=== PATIENT | female | born 1960 | race Caucasian/White ===

== ENCOUNTER → 2017-05-07 | Outpatient (CLI) | payer BC | LOC: FIMAGING 07:55 | PROVIDERS: ATTEND Thoracic Surgery (Cardiothoracic Vascular Surgery) | DX: I71.2 Thoracic aortic aneurysm, without rupture (principal); R59.9 Enlarged lymph nodes, unspecified; Q23.1 Congenital insufficiency of aortic valve; R91.1 Solitary pulmonary nodule ==

== ENCOUNTER → 2017-05-11 | Outpatient (CLI) | payer BC | LOC: FIMAGING 15:31 | PROVIDERS: ATTEND Family Medicine | DX: Z12.31 Encounter for screening mammogram for malignant neoplasm of breast (principal); Z80.3 Family history of malignant neoplasm of breast | CPT/HCPCS: G0202 ==

== ENCOUNTER → 2017-07-26 | Outpatient (CLI) | payer BC ==
[~2017-07-26] MED LIST: IOPAMIDOL (ISOVUE 370) 100 ML BTL IV ONE
== END ==
LOC: FIMAGING 15:36
PROVIDERS: ATTEND Thoracic Surgery (Cardiothoracic Vascular Surgery)
DX: I71.2 Thoracic aortic aneurysm, without rupture (principal); Q27.8 Other specified congenital malformations of peripheral vascular system
CPT/HCPCS: Q9967

== ENCOUNTER 2017-11-22 07:33 | Day surgery (SDC) | payer BC ==
[2017-11-22] MEDS ORDERED: DIAZEPAM 5 MG TAB PO ONE (07:41)
[2017-11-22] MEDS ORDERED: NS 1,000 ML IV ONE (07:41)
[2017-11-22] MEDS ORDERED: FAMOTIDINE 20 MG TAB PO ONE (07:41)
[2017-11-22] MEDS ORDERED: diphenhydrAMINE 25 MG CAP PO ONE ×2 (07:41→07:50)
[2017-11-22] MEDS ORDERED: ASPIRIN EC 325 MG TAB PO ONE ×2 (07:41→07:50)
[2017-11-22] MEDS ORDERED: FAMOTIDINE 20 MG TAB ONE (07:50)
[2017-11-22] MEDS ORDERED: DIAZEPAM 5 MG TAB ONE (07:51)
[2017-11-22 08:09] LABS: PLATELET COUNT 188 10^3/uL (150-400)
--- NOTE | 2017-11-22 08:15 | CPEKG ---
Heart Rate: 66 RR Interval: 909 P-R Interval: 184 QRSD Interval: 92 QT Interval: 408 QTC Interval: 428 P [place]: 60 QRS [place]: 19 T Wave [place]: 31 EKG Severity - NORMAL ECG - EKG Impression: SINUS RHYTHM Electronically Signed By: Anshu Haley 22-Nov-2017 10:16:34
[2017-11-22 08:17] LABS: INR 0.98 (0.83-1.16); PROTIME(PATIENT) 13.2 SEC (12.0-15.0)
[2017-11-22] MEDS ORDERED: LIDOCAINE 1% 300 MG/30 ML SDV ONE (08:26)
[2017-11-22] MEDS ORDERED: MIDAZOLAM 2 MG/2 ML VIAL ONE ×3 (08:26→10:17)
[2017-11-22] MEDS ORDERED: fentaNYL 100 MCG/2 ML INJ ONE ×2 (08:26→10:04)
[2017-11-22] MEDS ORDERED: VERAPAMIL 5 MG/2 ML VIAL ONE (08:27)
[2017-11-22] MEDS ORDERED: IOPAMIDOL (ISOVUE-370) 150 ML BTL IV ONE (08:27)
[2017-11-22] MEDS ORDERED: HEPARIN 10,000 UNIT/10 ML MDV (1,000 UNIT/ML) ONE (08:27)
--- NOTE | 2017-11-22 09:42 | PDHPUP ---
History & Physical Update H&P update statement: This history and physical update is based on an assessment of the patient which was completed after admission or registration (within 24 hours), but prior to the surgery/procedure. H&P update: H&P reviewed & patient examined, no change in patient's condition since H&P completed
--- NOTE | 2017-11-22 09:42 | PDPROPOC ---
Sedation Plan of Care Sedation Plan of Care: vital signs stable, mental status noted, patient educated of risks, benefits, alternatives, patient can tolerate sedation ASA Classification: ASA 3 Planned drugs: fentanyl, midazolam Mallampati Score: Class 3 Mallampati Reference Image: Patient passed 3-3-2 rule?: Yes
--- NOTE | 2017-11-22 10:01 | PDDXCAT ---
Diagnostic Cath Note - . Date: 11/22/17 Headline Writer: Kitty Indication: other (Diagnostic heart cath. CCS Class I angina. ) - Procedure Access: left wrist Procedure: left heart catheterization, right heart catheterization - Materials Left Heart Cath size: 5F Left Heart Cath materials: standard multipack (JL4, JR4, pigtail) Right Heart Cath size: 5F Right Heart Cath materials: PWP catheter - Findings-Left Heart Catheterization LM: The LM is 6mm in size. It trifurcates into an LAD, ramus, and circumflex system. DIEGO III flow throughout. There is no flow-limiting disease identified. LAD: The LAD is 3mm in size. DIEGO III flow. LCX: The proximal circumflex is 3mm in size. DIEGO III flow. RCA: The RCA is 4mm in size. It is dominant. DIEGO III flow. There is no evidence of flow-limiting disease. Ramus: The ramus is 3mm in size. DIEGO III flow. EDP: The LVEDP is elevated at 23mmHg. LVEF: The EF is approximately 65%-70%. - Findings-Right Heart Catheterization RA: Pressure: 11/9, mean 8mmHg RV: Pressure: 30/4, mean 11mmHg PA: Pressure: 27/13. Saturation 86.5% PAOP: 13mmHg AO: 99.6% CO: 6.7 l/min CI: 3.46 l/min/m2 Complications: None. Estimated blood loss: <50ml Closure method: TR Band Assessment: There is no evidence of flow limiting obstruction, dissection, or thrombus in her coronaries. DIEGO III flow throughout. Plan: The patient has a tricuspid valve seen on MONSE with moderate to severe aortic insufficiency. I recommend the patient have a CT with 3D reconstruction of the thoracic aorta to better understand the geometry of her thoracic aortic aneurysm. I recommend she have a surgical consultation with Dr. Chi to discuss the timing of the repair of her thoracic aortic aneurysm and or aortic valve as necessary. Intervention: NONE.
[2017-11-22] MEDS ORDERED: ONDANSETRON 4 MG/2 ML VIAL IVP PRN (11:31)
[2017-11-22] MEDS ORDERED: HYDROCODONE/APAP 5/325 TAB PO PRN (11:31)
[2017-11-22] MEDS ORDERED: NITROGLYCERIN 0.4 MG BTL SL PRN (11:31)
[2017-11-22] MEDS ORDERED: OXYCODONE/APAP 5/325 TAB PO PRN (11:31)
[2017-11-22] MEDS ORDERED: ATROPINE SULFATE 1 MG/10 ML SYR IVP PRN (11:31)
[2017-11-22] MEDS ORDERED: IOPAMIDOL (ISOVUE 370) 100 ML BTL IV ONE (14:06)
--- NOTE | 2017-11-23 13:00 | GCON ---
[f rep st] CONSULTATION DATE OF CONSULTATION: 11/22/2017 REQUESTING PHYSICIAN: Patient is seen at the request of Dr. Tang, with the patient's permission. IMPRESSION: 1. Markedly enlarged ascending aorta with new onset of chest pain. 2. Severe aortic insufficiency with a trileaflet valve. 3. Celiac disease. 4. Reactive airway disease. 5. Allergy to sulfa. RECOMMENDATIONS: This patient was found to have a trileaflet valve with a slight enlargement of asce nding aorta since last evaluation. She has noted new onset of substernal chest discomfort not related to activities initially but then noted to become more frequent with activity. Because of her known a neurysm and concern for potential coronary disease, she underwent diagnostic left heart cath in antic ipation of replacement of her ascending aorta. She has a 4.6-4.8 cm aorta on external dimensions, wh ich is slightly increased from her prior study in July and, given her onset of chest pain, there is always concern for pre dissection pain. The patient does extreme physical activities including [place] 14 years with a full pack and traveling to remote third world countries as well as [facility] on a f requent basis. Because of her concerns about aortic dissection, particularly in the face of a trilea flet valve, I do believe she has a forme fruste of Marfan's disease and is likely at a greater risk f or dissection. I have again offered her continued observation with at least a 4%-6% risk for dissect ion versus surgical intervention at which point we would replace the ascending aorta and aortic root if necessary and would evaluate for aortic valve repair with a Deonte procedure. However, her aortic insufficiency was quite severe and has a rather long duration and would likely need replacement. She prefers a bioprosthesis with the anticipation of placing a TAVR in the future to avoid Coumadin. We will use an Inspiris valve to allow dilation and expansion of that valve in the future. Risk is 1%- 2% bleeding, infection, stroke and heart attack, were also reviewed. Likelihood of transfusion is shabnam und 5% and attendant risks with transfusion were reviewed with her and her . They are agreeab le to proceed with surgery. We will schedule her at their convenience. CHIEF COMPLAINT: New onset of exertional chest pain. HISTORY OF CHIEF COMPLAINT: As stated above, patient has had activity related chest pain. There was concern about pre dissection symptoms. She underwent diagnostic left heart cath to rule out coronar y disease and was requesting surgical re-evaluation having seen her approximately a year ago. She wi shes to proceed with surgical intervention at this time. At the point of initial evaluation, I offer ed her early surgery because of her extreme exertional lifestyle, and remote travel. She wished to c omplete her road trip to [facility] before reconsidering. Now, with onset of chest pain and worry and anxiety over that, I agree that surgical intervention is appropriate. PAST MEDICAL HISTORY: As stated. PAST SURGICAL HISTORY: Not listed. MEDICATIONS: Cyclobenzaprine, fexofenadine, magnesium citrate, montelukast, omega-3, probiotic, pyri doxine, vitamin B6 oral, sumatriptan nasal spray, taurine, ubiquinol, vitamin C, vitamin D3, vitamin K. FAMILY HISTORY: Negative for any known aortic aneurysms, early sudden or dissection. PHYSICAL EXAMINATION: GENERAL: This is a slightly overweight, middle-aged female in no apparent dis tress, very appropriate, accompanied by her , quite pleasant. VITAL SIGNS: Blood pressure 12 0/80, pulse 76, respirations 14, nonlabored. HEENT: Normocephalic PERRLA, EOMI. NECK: Without brui t, adenopathy or thyromegaly. HEART: Rates regular with a murmur of aortic insufficiency. LUNGS: C lear. ABDOMEN: Soft, nontender. Bowel sounds are active. RECTAL/GENITAL: Deferred. NEUROLOGIC: She is grossly intact. Please see cath report. /[id number]/MODL
== END 2017-11-22 16:01 | disposition home or self-care (01) ==
LOC: FCATH 07:33
PROVIDERS: ATTEND Internal Medicine Cardiovascular Disease
PROC: B2111ZZ Fluoroscopy of Multiple Coronary Arteries using Low Osmolar Contrast (ICD-10-PCS; principal; 2017-11-22)
PROC: B2151ZZ Fluoroscopy of Left Heart using Low Osmolar Contrast (ICD-10-PCS; principal; 2017-11-22)
PROC: 4A023N8 Measurement of Cardiac Sampling and Pressure, Bilateral, Percutaneous Approach (ICD-10-PCS; principal; 2017-11-22)
DX: I35.1 Nonrheumatic aortic (valve) insufficiency (principal); I71.2 Thoracic aortic aneurysm, without rupture; K90.0 Celiac disease; J45.909 Unspecified asthma, uncomplicated; Z88.1 Allergy status to other antibiotic agents
CPT/HCPCS: J1644; J2250; J3010; Q9967

== ENCOUNTER 2017-11-26 10:10 | Inpatient (IN) | payer BC ==
[~2017-11-26 10:10] MED LIST changes: +AMINOCAPROIC ACID 5 GM/20 ML VIAL IV ONE; +INSULIN REGULAR HUMAN 100 UNIT in NS 100 ML IV ONE; -IOPAMIDOL (ISOVUE 370) 100 ML BTL IV ONE; +MANNITOL 25% 12.5 GM/50 ML VIAL IVP ONE; +NOREPINEPHRINE BITARTRATE 16 MG in NS 250 ML IV ONE; +PHENYLEPHRINE HCL 50 MG in NS 250 ML IV ONE; +SODIUM BICARBONATE 20 MEQ, LIDOCAINE 1% 10 ML in NORMOSOL-R 1,000 ML MISC ONE
[2017-11-26] MEDS ORDERED: MUPIROCIN 2% 22 GM OINT NS ONE (12:37)
[2017-11-26] MEDS ORDERED: ceFAZolin 2 GM/SWFI 2 GM/20 ML SYR IVP ONE (12:37)
[2017-11-26] MEDS ORDERED: CITRATE DEXTROSE SOLN 500 ML BAG MISC ONE (12:37)
[2017-11-26] MEDS ORDERED: niCARdipine/NACL 200 ML IV SCH (12:37)
[2017-11-26] MEDS ORDERED: LIDOCAINE 1% 2 ML INJ ID PRN (12:38)
[2017-11-26] MEDS ORDERED: LR 1,000 ML IV ONE (12:38)
[2017-11-26] MEDS ORDERED: PROTAMINE SULFATE 50 MG/5 ML VIAL IVP ONE (12:47)
[2017-11-26] MEDS ORDERED: CALCIUM CHLORIDE 1 GM/10 ML INJ ONE ×2 (12:48→12:50)
[2017-11-26] MEDS ORDERED: MILRINONE/DEXTROSE/100 ML BAG IV ONE (12:48)
[2017-11-26] MEDS ORDERED: NA BICARBONATE 50 MEQ/50 ML VIAL ONE (12:48)
[2017-11-26] MEDS ORDERED: niCARdipine/NACL/200 ML BAG IV ONE (12:49)
[2017-11-26] MEDS ORDERED: ADENOSINE 6 MG/2 ML VIAL ONE (12:49)
[2017-11-26] MEDS ORDERED: AMIODARONE HCL 150 MG/3 ML VIAL ONE ×2 (12:49→12:51)
[2017-11-26] MEDS ORDERED: DOPamine/DEXTROSE/250 ML BAG IV ONE (12:49)
[2017-11-26] MEDS ORDERED: HEPARIN 10,000 UNIT/10 ML MDV (1,000 UNIT/ML) ONE ×2 (12:49→12:50)
[2017-11-26] MEDS ORDERED: ceFAZolin 1 GM VIAL ONE (12:49)
[2017-11-26] MEDS ORDERED: LIDOCAINE 2% 100 MG/5 ML SYR ONE (12:50)
[2017-11-26] MEDS ORDERED: ALBUMIN 5% 250 ML BOTTLE IV ONE (12:50)
[2017-11-26] MEDS ORDERED: CITRATE DEXTROSE SOLN 500 ML BAG ONE (12:50)
[2017-11-26] MEDS ORDERED: MAGNESIUM SULFATE 1 GM/2 ML VIAL ONE (12:51)
[2017-11-26] MEDS ORDERED: methylPREDNISolone SOD SUCC 1 GM/8 ML VIAL ONE (12:51)
[2017-11-26] MEDS ORDERED: LIDOCAINE 1% 2 ML INJ ONE (12:52)
[2017-11-26] MEDS ORDERED: PAPAVERINE HCL 60 MG/2 ML SDV ONE ×2 (12:58→13:14)
[2017-11-26] MEDS ORDERED: MINERAL OIL 10 ML VIAL ONE (12:58)
[2017-11-26] MEDS ORDERED: VERAPAMIL 5 MG/2 ML VIAL ONE (13:14)
[2017-11-26] MEDS ORDERED: MIDAZOLAM 2 MG/2 ML VIAL IVP ONE (13:16)
--- NOTE | 2017-11-26 13:17 | PDANEPAE ---
ANE History of Present Illness here for AVR/root ANE Past Medical History - Cardiovascular History Hx Hypertension: No Hx Arrhythmias: No Hx Chest Pain: No Hx Coronary Artery / Peripheral Vascular Disease: No Hx CHF / Valvular Disease: No Hx Palpitations: Yes Cardiovascular History Comment: aortic insufficency - Pulmonary History Hx COPD: No Hx Asthma/Reactive Airway Disease: No Hx Recent Upper Respiratory Infection: No Hx Oxygen in Use at Home: No Hx Sleep Apnea: No Sleep Apnea Screening Result - Last Documented: Negative - Neurologic History Hx Cerebrovascular Accident: No Hx Seizures: No Hx Dementia: No - Endocrine History Hx Diabetes: No - Renal History Hx Renal Disorders: No - Liver History Hx Hepatic Disorders: No - Neurological & Psychiatric Hx Hx Neurological and Psychiatric Disorders: No - Cancer History Hx Cancer: No - Congenital Disorder History Hx Congenital Disorders: No - GI History Hx Gastrointestinal Disorders: Yes Gastrointestinal History Comment: celiac - Other Health History Other Health History: none - Chronic Pain History Chronic Pain: No - Surgical History Prior Surgeries: hernia repair. colonoscopy ANE Review of Systems Review of systems is: negative Review of Systems: - Exercise capacity Exercise capacity: >=4 METS METS (RN): 6 METS ANE Patient History - Allergies Allergies/Adverse Reactions: oats Allergy (Verified 11/09/17 11:56) Sulfa (Sulfonamide Antibiotics) Allergy (Verified 11/09/17 11:56) Rash wheat Allergy (Verified 11/09/17 11:56) chlorin Allergy (Uncoded 11/26/17 12:57) - Home Medications Home medications: home medication list seen and reviewed Home Medications: Ascorbic Acid [Vitamin C 500 mg (*)] 1,000 mg PO DAILY 11/09/17 [Last Taken ] Aspirin [Aspirin 81mg (*)] 81 mg PO DAILY 11/09/17 [Last Taken 11/23/17] Cholecalciferol Vit D3 [Vitamin D3 2000 units tab (OTC)] 2,000 units PO DAILY [Last Taken 11/24/17] Cyanocobalamin [Vitamin B12 (*)] 2,000 mcg PO DAILY 11/09/17 [Last Taken ] Cyclobenzaprine [Flexeril 10 MG (*)] 10 mg PO DAILY PRN 11/09/17 [Last Taken ] Fexofenadine HCl 180 mg PO DAILY 11/09/17 [Last Taken 11/25/17] Herbals/Supplements -Info Only 1 ea PO DAILY 11/09/17 [Last Taken 11/23/17] [place]-3 Fatty Acids [Fish Oil 1000 mg (*)] 1,000 mg PO DAILY 11/09/17 [Last Taken 11/23/17] Magnesium Citrate 200 mg PO 11/26/17 [Last Taken 11/25/17] - NPO status NPO Status: no food or drink >8 hours - Smoking Hx Smoking Status: Never smoked - Family Anes Hx Family Hx Anesthesia Complications: none ANE Labs/Vital Signs - Vital Signs Vital Signs: reviewed preoperatively; see RN documention for details Blood Pressure: 123/73 Heart Rate: 82 Respiratory Rate: 20 O2 Sat (%): 96 Height: 177.8 cm Weight: 78.925 kg ANE Physical Exam - Airway Neck exam: FROM Mallampati Score: Class 1 Mouth exam: small mouth opening - Pulmonary Pulmonary: no respiratory distress - Cardiovascular Cardiovascular: regular rate and rhythym - ASA Status ASA Status: III ANE Anesthesia Plan Anesthesia Plan: general endotracheal anesthesia Lines/Monitors: arterial line, central line, MONSE
[2017-11-26] MEDS ORDERED: fentaNYL 250 MCG/5 ML INJ ONE ×2 (13:35→14:28)
[2017-11-26] MEDS ORDERED: PROPOFOL/EMULSION 500 MG/50 ML BOTTLE IV ONE (13:37)
[2017-11-26] MEDS ORDERED: KETAMINE 200 MG/20 ML VIAL ONE (14:28)
[2017-11-26] MEDS ORDERED: PHENYLEPHRINE HCL 100 MCG/ML SYR ONE (17:20)
[2017-11-26] MEDS ORDERED: NITROGLYCERIN 50 MG/10 ML SDV IV ONE (17:20)
[2017-11-26] MEDS ORDERED: SUGAMMADEX SODIUM 200 MG/2 ML VIAL IVP ONE (17:21)
[2017-11-26] MEDS ORDERED: HYDROmorphONE/DILAUDID 2 MG/ML INJ ONE (17:23)
[2017-11-26] MEDS ORDERED: ONDANSETRON 4 MG/2 ML VIAL ONE (17:25)
[2017-11-26] MEDS ORDERED: fentaNYL 100 MCG/2 ML INJ IVP PRN (17:47)
[2017-11-26] MEDS ORDERED: D50W 25 GM/50 ML SYR IVP PRN (17:47)
[2017-11-26] MEDS ORDERED: MAGNESIUM HYDROXIDE 30 ML UDCUP PO PRN (17:47)
[2017-11-26] MEDS ORDERED: POTASSIUM Cl (KCl) 50 ML IV PRN (17:47)
[2017-11-26] MEDS ORDERED: ONDANSETRON DISINTEGRATING 4 MG TAB PO PRN (17:47)
[2017-11-26] MEDS ORDERED: METOCLOPRAMIDE 10 MG/2 ML VIAL IVP PRN (17:47)
[2017-11-26] MEDS ORDERED: BISACODYL 10 MG SUPP PR PRN (17:47)
[2017-11-26] MEDS ORDERED: HYDROCODONE/APAP 5/325 TAB PO PRN (17:47)
[2017-11-26] MEDS ORDERED: SODIUM CL NASAL 45 ML BTL EACHNARE PRN (17:47)
[2017-11-26] MEDS ORDERED: POLYETHYLENE GLYCOL 3350 17 GM PKT PO PRN (17:47)
[2017-11-26] MEDS ORDERED: ACETAMINOPHEN 650 MG SUPP PR PRN (17:47)
[2017-11-26] MEDS ORDERED: CEPACOL LOZENGE PO PRN (17:47)
[2017-11-26] MEDS ORDERED: MAGNESIUM SULF 2 GM/WATER 50 ML IV ONE (17:47)
[2017-11-26] MEDS ORDERED: PANTOPRAZOLE SODIUM 40 MG VIAL IVP ONE (17:47)
[2017-11-26] MEDS ORDERED: LACTULOSE 20 GM/30 ML UDCUP PO PRN (17:47)
[2017-11-26] MEDS ORDERED: MEPERIDINE 25 MG/ML SYR IVP PRN (17:47)
[2017-11-26] MEDS ORDERED: CYCLOBENZAPRINE 10 MG TAB PO PRN (17:51)
[2017-11-26] MEDS ORDERED: NS 1,000 ML IV SCH (18:00)
[2017-11-26] MEDS ORDERED: INSULIN REGULAR HUMAN 100 UNIT in NS 100 ML IV SCH (18:00)
--- NOTE | 2017-11-26 18:28 | POSTANESTH ---
Post Anesthetic Evaluation Cardiovascular Status: Normal, Stable Respiratory Status: Normal, Stable Level of Consciousness/Mental Status: Mildly Sleepy, Arousable Pain Control: Adequate, Prn Tx Ordered Nausea/Vomiting Control: Adequate, Prn Tx Ordered Complications Possibly Related to Anesthesia: None Noted
[2017-11-26] MEDS: KETOROLAC 15 MG/1 ML SDV IVP SCH ×2 (18:33→23:06)
--- NOTE | 2017-11-26 20:00 | CPEKG ---
Heart Rate: 70 RR Interval: 857 P-R Interval: 176 QRSD Interval: 100 QT Interval: 440 QTC Interval: 475 P [place]: 68 QRS [place]: -10 T Wave [place]: 33 EKG Severity - NORMAL ECG - EKG Impression: SINUS RHYTHM Electronically Signed By: Brady Mcneil 28-Nov-2017 10:09:40
[2017-11-26] MEDS: MUPIROCIN 2% 22 GM OINT NS SCH (20:14)
[2017-11-26] MEDS: SENNOSIDES/DOCUSATE SODIUM TAB PO SCH (20:14)
[2017-11-26] MEDS: ceFAZolin 2 GM/SWFI 2 GM/20 ML SYR IVP SCH (21:40)
[2017-11-26] MEDS: ceFAZolin 2 GM/DEXTROSE 100 ML IV SCH (21:41)
[2017-11-26] MEDS: ALBUMIN 5% 250 ML IV PRN ×2 (22:14→22:45)
[2017-11-27] MEDS: ALBUMIN 5% 250 ML IV PRN (02:05)
[2017-11-27] MEDS: ACETAMINOPHEN 325 MG TAB PO PRN ×5 (03:33→20:05)
--- NOTE | 2017-11-27 04:59 | GOP ---
[f rep st] OPERATIVE REPORT DATE OF OPERATION: 11/26/2017 SURGEON: Roshan Chi DO [place] CONSULTANT: Kevan Martinez PA-C. ANESTHESIOLOGIST: Gonzalo Sanders MD. PREOPERATIVE DIAGNOSIS: Severe aortic insufficiency with expanding aortic root aneurysm and new onse t of chest pain. 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 PROCEDURE PERFORMED: 1. Aortic root replacement with a #23 Inspiris Wilkins valve implanted and a 28 mm Hemashield graft with reimplantation of the coronary arteries. 2. Annetta clip to the left atrial appendage. FINDINGS: Patient was noted to have enlarging aortic root aneurysm with new onset of atypical chest pain of uncertain etiology. Diagnostic cath was unremarkable. INDICATIONS: This patient spends a great deal of time in remote [address] [place] [id number] countries doing some extre Vanderdroid activities. For that reason, she requested aneurysm and valve replacement. She was consented for surgery. DESCRIPTION OF PROCEDURE: She was brought to the operating room intubated. Monitoring lines were pl aced. She was prepped and draped in a sterile classical manner. Transesophageal echo confirmed kali re central aortic insufficiency with a trileaflet valve. She was heparinized, cannulated in the polk sverse arch and right atrium. Cardiopulmonary bypass was begun. Cardioplegic arrest was obtained wi th retrograde cardioplegia topical hypothermia and systemic cooling. Initially, the left atrial appe ndage was occluded with a 35 mm atrial clip. We then proceeded with excising the ascending aorta up to the innominate artery where it tapered to 28 mm. The root actually was 4.7 in external dimensions and upon inspecting the valve, it was trileaflet with fenestrations and marked prolapse of the centr al portions. I felt it was not suitable for repair. The sinuses were markedly dilated and there jensen eared to be a healed dissection and a noncoronary sinus. For that reason, I felt that total root rep lacement was more appropriate. The coronary buttons were developed and the valve was excised. A 23 mm Inspiris valve implanted and a 28 mm Hemashield graft as a conduit was then sewn with interrupted 2-0 Tycron pledgeted mattress sutures circumferentially in the anulus of the aortic valve. We then f ashioned an opening with electrocautery for the left main coronary artery which was anastomosed witho ut tension or kinking with a continuous running 5-0 Prolene suture, reinforced in several spots. We then did the same for the right coronary artery, measuring it carefully. BioGlue was applied externa lly. We then completed the end-to-end anastomosis to the ascending aorta where it tapered to normal at 28 mm. The cross-clamp was then removed with suction on the ascending aortic vent. Spontaneous c ardiac activity was noted to resume. The patient was rewarmed, weaned from bypass. Heparin was reve rsed with protamine. Transesophageal echo confirmed good LV function and good artery function with a peak gradient of 13. Heparin was reversed with protamine. The cannula was removed and oversewn. F our pacing wires, 1 right pleural and 1 mediastinal drain were placed. The thymic fat and pericardiu m were closed. Chest was closed in standard fashion. Patient was returned to ICU in stable condelyssao nEvgeny /[id number]/MODL
[2017-11-27 05:14] LABS: PLATELET COUNT 76 10^3/uL (150-400)
[2017-11-27] MEDS: ceFAZolin 2 GM/DEXTROSE 100 ML IV SCH ×2 (05:43→14:23)
[2017-11-27] MEDS: KETOROLAC 15 MG/1 ML SDV IVP SCH ×4 (05:47→23:50)
[2017-11-27] MEDS: ceFAZolin 2 GM/SWFI 2 GM/20 ML SYR IVP SCH ×2 (05:47→23:50)
[2017-11-27] MEDS ORDERED: HEPARIN 5,000 UNIT/0.5 ML SYR SC SCH (06:00)
--- NOTE | 2017-11-27 06:35 | SOAPPROG ---
SOAP Progress Note Assessment/Plan: POD #1: AVR with 23 Wilkins Inspiris bioprosthesis in a #28 Hemashield graft with reimplantation of coronary arteries, AtriClip exclusion of HERLINDA Severe AI with asc ao aneurysm s/p AVR/replacement of aorta with reimplantation of coronary arteries - BB/ASA when appropriate - CTs to bulb suction, AL/FC to be removed - PT/OT - SCDs/heparin SQ for DVT prophylaxis Bradyrhythmias - Currently in SR 60s with adequate BP - Continue AAI backup at 50 Acute blood loss anemia with thrombocytopenia - Stable without the need for transfusions - Hold heparin SQ until platelets > 100 Subjective: Feels wiped out. Pain well-controlled. Denies SOB. Objective: Vital Signs Temp Pulse Resp BP Pulse Ox 37 C 70 31 H 115/55 L 97 11/27/17 05:00 11/27/17 05:00 11/27/17 05:00 11/27/17 05:00 11/27/17 05:00 Laboratory Results 11/27/17 04:30 11/27/17 04:30 11/26/17 11/27/17 11/28/17 05:59 05:59 05:59 Intake Total 681 Output Total 1840 Balance -1159 Physical Exam - Physical Exam General Appearance: WD/WN, alert, no apparent distress EENT: No scleral icterus (R), No scleral icterus (L) Neck: normal inspection Respiratory: No respiratory distress Cardiac/Chest: regular rate, rhythm Abdomen: non-tender, soft, No distended Skin: normal color, warm/dry Extremities: No pedal edema Neuro/Psych: no motor/sensory deficits, alert, normal mood/affect, oriented x 3 ICD10 Worksheet Patient Problems: Problems Problem Status Onset S/P aortic valve replacement with bioprosthetic valve Acute Status post aortic aneurysm repair Acute Thoracic aortic aneurysm Acute
[2017-11-27] MEDS ORDERED: ASPIRIN 81 MG CHEWABLE TAB PO SCH (09:00)
--- NOTE | 2017-11-27 09:13 | PDMN ---
Medical Necessity Medical necessity: S290 cardiac valve replacement or repair 5 days : ALANIS inpt only: Aortic root replacement and graft with reimplantation of coronary arteries,
[2017-11-27] MEDS: MUPIROCIN 2% 22 GM OINT NS SCH (10:00)
[2017-11-27] MEDS: SENNOSIDES/DOCUSATE SODIUM TAB PO SCH ×2 (10:17→20:05)
[2017-11-27] MEDS: ASPIRIN 81 MG CHEWABLE TAB PO SCH (10:17)
[2017-11-27] MEDS: PANTOPRAZOLE SODIUM 40 MG TAB PO SCH (11:24)
[2017-11-27] MEDS: ONDANSETRON 4 MG/2 ML VIAL IVP PRN (15:08)
--- NOTE | 2017-11-27 16:23 | ASMTCMCOM ---
CM Note CM Note Notes: 57yr old female admitted for AVR, AAAR, TAA. Patient is active and lives with her . Therapies aren't recommending any discharge needs at this time. Date Signed: 11/27/2017 04:22 PM Electronically Signed By:Flower Hernandez LCSW
[2017-11-28] MEDS: MUPIROCIN 2% 22 GM OINT NS SCH ×2 (00:22→08:37)
[2017-11-28] MEDS: ONDANSETRON 4 MG/2 ML VIAL IVP PRN ×2 (00:22→06:27)
[2017-11-28] MEDS: ACETAMINOPHEN 325 MG TAB PO PRN ×5 (03:07→22:30)
[2017-11-28 03:23] LABS: PLATELET COUNT 90 10^3/uL (150-400)
[2017-11-28] MEDS: ceFAZolin 2 GM/SWFI 2 GM/20 ML SYR IVP SCH (05:43)
[2017-11-28] MEDS: KETOROLAC 15 MG/1 ML SDV IVP SCH (05:43)
--- NOTE | 2017-11-28 07:22 | SOAPPROG ---
SOAP Progress Note Assessment/Plan: Assessment: POD#2 AVR #23 Wilkins Inspiris bioprosthesis in a #28 Hemashield graft with reimplantation of coronary arteries, AtriClip exclusion of HERLINDA Severe AI with asc ao aneurysm s/p composite graft replacement of AVR/root/asc ao - Antithrombotic prophylaxis with ASA. - AF prophylaxis with BB when appropriate - CTs to bulb suction - TCPWs wrapped/capped - PT/OT Early postop bradyarrhythmias - No prolonged pacer dependence - Appears to be resolving. Cont avoidance antinodals. Acute blood loss anemia with thrombocytopenia - Stable without the need for transfusions - SCDs for DVT prophylaxis pending platelet rebound Plan: Advance diet. Switch Toradol to prn ibuprofen. Remove TCPWs and gavin drains. Wean O2. Inc activity as tolerated. Dispo - Home without services next 1-2 days. 11/28/17 07:19 Subjective: Nauseous earlier this am after IV meds (Ancef and Toradol). Currently hungry and would like toast. Objective: Vital Signs Temp Pulse Resp BP Pulse Ox 37.0 C 78 16 112/55 L 96 11/28/17 03:06 11/28/17 03:06 11/28/17 03:06 11/28/17 03:06 11/28/17 03:06 Laboratory Results 11/28/17 03:15 11/28/17 03:15 11/27/17 11/28/17 11/29/17 05:59 05:59 05:59 Intake Total 681 800 Output Total 1840 1913 Balance -1159 -1113 Holding SR with rates > 70 and SBP > 90. Almost off O2. Excellent fluid balance. CTOP below removal criteria. Labs ok. Platelets on the rise. - Pending Discharge Pending Discharge Within 48 Hours: Yes Pending Discharge Date: 11/30/17 Pending Discharge Time: 11:00 Physical Exam - Physical Exam General Appearance: alert, no apparent distress Respiratory: lungs clear (grossly), other (blakes x 2 to bulb suction, serosang drainage) Cardiac/Chest: regular rate, rhythm, other (Sternotomy CDI. A&V wires intact.) Abdomen: non-tender, soft Skin: warm/dry Extremities: other (no visible edema) ICD10 Worksheet Patient Problems: Problems Problem Status Onset S/P aortic valve replacement with bioprosthetic valve Acute Status post aortic aneurysm repair Acute Thoracic aortic aneurysm Acute
[2017-11-28] MEDS: ASCORBIC ACID 500 MG TAB PO SCH (08:32)
[2017-11-28] MEDS: PANTOPRAZOLE SODIUM 40 MG TAB PO SCH (08:32)
[2017-11-28] MEDS: CHOLECALCIFEROL VIT D3 2,000 UNITS TAB/CAP PO SCH (08:33)
[2017-11-28] MEDS: OMEGA-3 FATTY ACIDS 1,000 MG CAP PO SCH (08:33)
[2017-11-28] MEDS: CETIRIZINE 10 MG TAB PO SCH ×2 (08:33→08:36)
[2017-11-28] MEDS: SENNOSIDES/DOCUSATE SODIUM TAB PO SCH ×2 (08:34→19:47)
[2017-11-28] MEDS: CYANO/VITAMIN B12 1000 MCG TAB PO SCH (08:34)
[2017-11-28] MEDS: ASPIRIN 81 MG CHEWABLE TAB PO SCH (08:37)
[2017-11-28] MEDS ORDERED: IBUPROFEN 600 MG TAB PO PRN (08:45)
[2017-11-28] MEDS: traMADol 50 MG TAB PO PRN (19:05)
[2017-11-29] MEDS: ACETAMINOPHEN 325 MG TAB PO PRN ×5 (03:31→22:06)
--- NOTE | 2017-11-29 07:41 | SOAPPROG ---
SOAP Progress Note Assessment/Plan: Assessment: POD#3 AVR #23 Wilkins Inspiris bioprosthesis in a #28 Hemashield graft with reimplantation of coronary arteries, AtriClip exclusion of HERLINDA Severe AI with asc ao aneurysm s/p composite graft replacement of AVR/root/asc ao - Antithrombotic prophylaxis with ASA. - AF prophylaxis with BB when appropriate - CTs and TCPWs out - PT/OT Early postop bradyarrhythmias - Resolved. Antinodals to be avoided unless develops tachycardia. Acute blood loss anemia with thrombocytopenia - Stable without the need for transfusions - SCDs for DVT prophylaxis pending platelet rebound Plan: Begin gentle diuresis. Wean O2. Cont inc activity as tolerated. Baseline postop echo. Screening CTAs head/abd/pelvis for other aneurysms. Dispo - Home without services tomorrow. 11/29/17 07:38 Subjective: Slept well. A little orthopneic and more comfortable in recliner. Appetite cont to improve. BM imminent. Comfortable going home tomorrow. Objective: Vital Signs Temp Pulse Resp BP Pulse Ox 36.6 C 77 10 L 112/69 94 11/29/17 07:32 11/29/17 07:32 11/29/17 07:32 11/29/17 07:32 11/29/17 07:32 Laboratory Results 11/29/17 03:40 11/28/17 03:15 11/28/17 11/29/17 11/30/17 05:59 05:59 05:59 Intake Total 800 1540 Output Total 1913 600 Balance -1113 940 HR and BP controlled. Min suppl O2 req. Positive fluid balance. + 4 kg overall. Platelets stable. Physical Exam - Physical Exam General Appearance: alert, no apparent distress Respiratory: lungs clear (grossly) Cardiac/Chest: regular rate, rhythm, other (Sternotomy CDI. Chest tube sites clean and moist.) Abdomen: non-tender, soft Skin: warm/dry Extremities: swelling (trace) ICD10 Worksheet Patient Problems: Problems Problem Status Onset S/P aortic valve replacement with bioprosthetic valve Acute Status post aortic aneurysm repair Acute Thoracic aortic aneurysm Acute
[2017-11-29] MEDS: SENNOSIDES/DOCUSATE SODIUM TAB PO SCH ×2 (07:52→20:40)
[2017-11-29] MEDS: OMEGA-3 FATTY ACIDS 1,000 MG CAP PO SCH (07:52)
[2017-11-29] MEDS: ASPIRIN 81 MG CHEWABLE TAB PO SCH (07:53)
[2017-11-29] MEDS: CHOLECALCIFEROL VIT D3 2,000 UNITS TAB/CAP PO SCH (07:53)
[2017-11-29] MEDS: CYANO/VITAMIN B12 1000 MCG TAB PO SCH (07:54)
[2017-11-29] MEDS: ASCORBIC ACID 500 MG TAB PO SCH (07:54)
[2017-11-29] MEDS: PANTOPRAZOLE SODIUM 40 MG TAB PO SCH (08:04)
[2017-11-29] MEDS ORDERED: FEXOFENADINE 60 MG PO SCH (09:00)
[2017-11-29] MEDS ORDERED: SUMAtriptan 20 MG/SPRAY BTL NS PRN (09:34)
[2017-11-29] MEDS: FUROSEMIDE 20 MG TAB PO SCH (09:45)
[2017-11-29] MEDS: traMADol 50 MG TAB PO PRN ×4 (09:45→22:06)
[2017-11-29] MEDS: POTASSIUM CL 10 MEQ TAB PO SCH (09:46)
[2017-11-29] MEDS ORDERED: IOPAMIDOL (ISOVUE 370) 100 ML BTL IV ONE (12:42)
--- NOTE | 2017-11-29 15:32 | ECHO ---
[email or web address] [address] [address] Main: [phone] Fax: Transthoracic Echocardiogram Name: SHREYAS RAMESH MR#: [id number] Study Date: 11/29/2017 Study Time: 01:50 PM Date of : 1960 Age: 57 year(s) Height: 177.8 cm (70 in.) Weight: 82.55 kg (182 lb.) BSA: 2.01 m2 Gender: Female Examination: Echo Indication: Post OP AVR, #23 Wilkins Inspiris Resilia bioprothesis Image Quality: Contrast: Requested by: Micaela Pedraza BP: 121 mmHg/68 mmHg Heart Rate: Rhythm: Normal sinus rhythm Indication: Post OP AVR, #23 Wilkins Inspiris [place] bioprothesis Procedure Staff Wire Stripper: Anthony Mckeon RD Reading Physician: Francisco J Chaidez MD Requesting Provider: Conclusions: No pericardial effusion. Concentric left ventricular hypertrophy. Ejection fraction 64%. Bioprosthetic aortic valve with a mean gradient of 6 mm of mercury. Measurements: Chambers Valvular Assessment AV/MV Valvular Assessment TV/PV Normal Normal Normal Name Value Range Name Value Range Name Value Range Ao [place] (MM): 1.8 cm (2.2 cm-3.7 AV Vmax: 2.25 m/s (1 m/s-1.7 PV Vmax: 1.49 m/s (0.6 m/s-0.9 cm) m/s) m/s) IVSd (2D): 1.1 cm (0.6 cm-1.1 AV maxP mmHg ( - ) PV PGmax: 9 mmHg ( - ) cm) AV meanP mmHg ( - ) LVDd (2D): 4.4 cm (3.9 cm-5.3 BLAZE (VTI): 2.2 cm ( - ) cm) MV E Vmax: 0.94 m/s ( - ) LVDs (2D): 2.9 cm (2.1 cm-4 MV A Vmax: 0.46 m/s ( - ) cm) MV E/A: 2.04 ( - ) LVPWd (2D): 1.1 cm ( - ) LVOTd 2.3 cm 2.3 cm mm LVEF (2D): 64 (>=54 %) Continued Measurements: Chambers Valvular Assessment AV/MV Name Value Name Value LADs Lon.7 cm MV E' Septal: 0.08 m/s LA Area: 17.4 cm2 MV E/E' Septal: 11.30 MV E/E' Lateral: 16.00 Patient: SHREYAS RAMESH Study Date: 11/29/2017 Page 1 of 2 01:50 PM Findings: Left Ventricle: Normal size left ventricle. Borderline concentric LV hypertrophy. Normal global systolic LV function. EF is 64 %. No regional wall motion abnormality. Diastolic dysfunction is present. . Right Ventricle: Normal size right ventricle. Left Atrium: The left atrium is normal in size. Right Atrium: The right atrium is normal in size. Mitral Valve: The mitral valve is normal in appearance and function. Trivial mitral valve regurgitation. Aortic Valve: The aortic valve is a bioprosthesis. Normal functioning aortic valve prosthesis. No prosthesis stenosis. No prosthesis regurgitation. The Ao mean PG is 6 mmHg with a Vmax of 1.6 m/s. Tricuspid Valve: The tricuspid valve is normal in appearance and function. Trivial tricuspid valve regurgitation. Pulmonic Valve: The pulmonic valve is normal in appearance and function. There is no pulmonic regurgitation seen. Aorta: The aorta is normal. Pericardium: No pericardial effusion. There is a pleural effusion. (No Signature Object) Patient: SHREYAS RAMESH Study Date: 11/29/2017 Page 2 of 2 01:50 PM [id number]
[2017-11-29] MEDS: FEXOFENADINE 60 MG PO SCH (22:05)
[2017-11-30] MEDS: ACETAMINOPHEN 325 MG TAB PO PRN ×2 (02:32→07:03)
[2017-11-30] MEDS: traMADol 50 MG TAB PO PRN ×4 (02:33→13:30)
--- NOTE | 2017-11-30 07:41 | SOAPPROG ---
SOAP Progress Note Assessment/Plan: Assessment: POD#4 AVR #23 Wilkins Inspiris bioprosthesis in a #28 Hemashield graft with reimplantation of coronary arteries, AtriClip exclusion of HERLINDA Severe AI with asc ao aneurysm s/p composite graft replacement of AVR/root/asc ao - Antithrombotic prophylaxis with ASA. - CTs and TCPWs out - PT/OT Early postop bradyarrhythmias - Resolved. Antinodals to be avoided unless develops tachycardia. Acute blood loss anemia with thrombocytopenia - Stable without the need for transfusions - Platelet rebound noted Plan: Ok for discharge. Instructions re diet, meds, activity, f/u and wound care to be reviewed in presence of . 11/30/17 07:40 Subjective: Feels well. No acute concerns. Ready for home. Objective: Vital Signs Temp Pulse Resp BP Pulse Ox 36.8 C 78 16 116/74 93 11/30/17 04:00 11/30/17 04:00 11/30/17 04:00 11/30/17 04:00 11/30/17 04:00 Laboratory Results 11/30/17 06:40 11/30/17 06:40 11/29/17 11/30/17 12/01/17 05:59 05:59 05:59 Intake Total 1540 1900 Output Total 600 3300 Balance 940 -1400 Cardioresp status stable. 2 lpm O2 req with ambulation. Beginning to mobilize excess fluid. Platelets on the rise. Physical Exam - Physical Exam General Appearance: alert, no apparent distress Respiratory: normal breath sounds Cardiac/Chest: regular rate, rhythm, other (Sternotomy CDI. CT sites clean and moist.) Abdomen: non-tender, soft Skin: warm/dry Extremities: swelling (trace) ICD10 Worksheet Patient Problems: Problems Problem Status Onset S/P aortic valve replacement with bioprosthetic valve Acute Status post aortic aneurysm repair Acute Thoracic aortic aneurysm Acute
[2017-11-30] MEDS ORDERED: SENNOSIDES/DOCUSATE SODIUM TAB PO PRN (09:00)
--- NOTE | 2017-11-30 09:13 | PDHOMEO2F ---
Home Oxygen Face to Face Home Orders: I certify that a physician or a nurse practitioner or physician's child welfare assistant has had a [id number] encounter with this patient on the date of this order due to the diagnosis listed, which relates to the primary reason the patient requires home oxygen. Alternative treatments have been tried, or considered, and deemed ineffective. It is anticipated that supplemental oxygen will result in improvement with treatment. 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 Length of time home oxygen needed: 1 month
--- NOTE | 2017-11-30 09:51 | PDDCSUM ---
Discharge Summary Discharge Summary: DATE OF ADMISSION: 11/26/17 DATE OF DISCHARGE: 11/30/17 DISPOSITION: Home, self-care PRINCIPAL ADMISSION DIAGNOSES: 1. Enlarging aortic root aneurysm 2. Severe aortic valve insufficiency 3. Valvular cardiomyopathy PRINCIPAL DISCHARGE DIAGNOSES: 1. 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 Status post aortic valve, aortic root, and ascending aortic replacement with a bioprosthetic valved conduit 3. Status post prophylactic AtriClip ligation of the left atrial appendage 4. Acute expected blood loss anemia 5. Incidental nonobstructive celiac artery disease 6. Incidental cholelithiasis HISTORY OF PRESENT ILLNESS: 57 yo female with severe AI of a trileaflet aortic valve, LVDD and an enlarging aortic root aneurysm referred for surgical repair after an episode of severe exertional chest pain worrisome for aortopathy. Preop imaging negative for CAD or overt aortic dissection. PAST MEDICAL HISTORY: Celiac disease, reactive airway disease, migraine headaches MEDICATIONS ON ADMISSION: ASA 81 mg daily, Vit C 1,000 mg daily, Vit B12 2,000 mcg daily, Fish oil 1,000 mg daily, Vit D3 2,000 units daily, Fexofenadine 180 mg daily, Herbal supplement daily, Flexeril 10 mg daily prn, Sumatriptan 20 mg nasally prn ALLERGIES/SENSITIVITIES: Sulfa causing a rash CONSULTANTS: none PROCEDURES/IMAGIN/19 (Arti): Aortic root and ascending aortic replacement with a valved conduit constructed from a 23 mm Wilkins Inspiris Resilia bovine pericardial bioprosthesis inside a 28 mm hemashield graft. Reimplantation of the coronary arteries. Prophylactic AtriClip ligation of the left atrial appendage. 11/29 (Dm): Transthoracic echocardiogram: Nl BiV systolic fx. LVEF 64%. Nl atrial size. Nl bioprosthetic valve function. Trivial MR. Trivial TR. 11/29 Head CTA: Negative for intracranial aneurysm 11/29 Abdominal CTA: Negative for abdominal aortic, visceral or iliac aneurysm. Incidental 50% stenosis of proximal celiac artery with mild poststenotic dilatation. Incidental cholelithiasis. ABBREVIATED HOSPITAL COURSE BY ACTIVE PROBLEM LIST: 1. Sx severe AI with aneurysmal asc ao - Intraop appearance of a healed focal dissection of the noncoronary sinus. 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 Screening CTAs of head/abd/pelvis negative for other aneurysms. Hemodynamically stable early postop course. Antithrombotic prophylaxis with ASA alone. 2. Postop bradyarrhythmias - Resolved by POD#2. Antinodals avoided. 3. Acute expected blood loss anemia with thrombocytopenia - Stable. No transfusions required. Platelet rebound noted. DISCHARGE CLINICAL INFORMATION: Sternum grossly stable. Sternotomy CDI, sutured, +Dermabond. HR 80s. SBP 110s-120s. SpO2 86% RA, correcting to 94% on 2 lpm O2. Wt 3.4kg above admission at 78.9 kilos. WBC 8.6, Hgb 11, HCT 32.6, Plt 117, Na 134, K 3.8, Cr 0.5 DISCHARGE MEDICATIONS: As on admission with the following adjustments: NEW prescriptions: 1. Lasix 20 mg daily until back to baseline weight 2. Klor-Con 10 meq daily with Lasix 3. Tramadol 50 mg q 6-8 hrs prn incisional discomfort FOLLOW UP APPOINTMENTS: 1. CV surgery: with Dr Chi at [facility] on 12/11 at 11:45 am. 2. Cardiology: with Dr Tang or Kaylee Gibson PA-C at [facility] within 4-6 weeks. Appointment to be established during surgical visit. FOLLOW UP TESTING: CXR prior to surgical appointment.
[2017-11-30] MEDS ORDERED: POTASSIUM CL 20 MEQ TAB PO ONE (10:00)
[2017-11-30] MEDS: OMEGA-3 FATTY ACIDS 1,000 MG CAP PO SCH (10:09)
[2017-11-30] MEDS: FUROSEMIDE 20 MG TAB PO SCH (10:09)
[2017-11-30] MEDS: POTASSIUM CL 10 MEQ TAB PO SCH (10:10)
[2017-11-30] MEDS: CYANO/VITAMIN B12 1000 MCG TAB PO SCH (10:11)
[2017-11-30] MEDS: ASPIRIN 81 MG CHEWABLE TAB PO SCH (10:11)
[2017-11-30] MEDS: FEXOFENADINE 60 MG PO SCH (10:12)
[2017-11-30] MEDS: CHOLECALCIFEROL VIT D3 2,000 UNITS TAB/CAP PO SCH (10:12)
[2017-11-30] MEDS: ASCORBIC ACID 500 MG TAB PO SCH (10:12)
[2017-11-30 12:12] VITALS: RESP 18
[2017-11-30 13:10] VITALS: BP 132/103; PULSE 81; TEMP 98.5; O2SAT 94
--- NOTE | 2017-11-30 16:52 | ASDISCHSUM ---
Discharge Information Plan Status:Home with No Needs Medically Cleared to Leave:11/30/2017 Discharge Date:11/30/2017 04:03 PM CM D/C Disposition:Home, Routine, Self-Care ADT D/C Disposition:Home, Routine, Self-Care Projected Discharge Date:11/30/2017 04:03 PM Transportation at D/C: Discharge Delay Reason: Follow-Up Date:11/30/2017 04:03 PM Discharge Slot: Final Diagnosis: Placement Information Patient Contact Information Contact Name:VELVETGADIEL Relationship: Address:[address] [place] [address] [facility] Phone: [facility]/Zip Code:[place] [address] Email: Financial Information Financial Class:HMO and PPO Plans Primary Plan Desc: OUT OF STATE PPO Primary Plan Number:[id number] Secondary Plan Desc: Secondary Plan Number: Assessment Information LACE LACE Length of stay for Answers: 4-6 days current admission Acuity / Level of Answers: Yes Care: Did the patient have an inpatient admission? Comorbidities - select Answers: Coronary Artery Disease all that apply Other Notes: AAA, AVR,TAA # of Emergency department Answers: 0 visits in the last 6 months Score: 10 Date Signed: 11/30/2017 04:51 PM Electronically Signed By:Kayleigh Pollock RN [facility] CM Progress Note CM Note CM Note Notes: 57yr old female admitted for AVR, AAAR, TAA. Patient is active and lives with her . Therapies aren't recommending any discharge needs at this time. Date Signed: 11/27/2017 04:22 PM Electronically Signed By:Flower Hernandez LCSW Case Management Discharge Plan Note Case Management Discharge Discharge Order Complete? Answers: Yes Patient to Obtain Answers: Independently Medications Discharge Comments Notes: 11/30/2017 Case Management Note Pt to d/c independent with follow up as directed. There were no case management d/c needs identified. Date Signed: 11/30/2017 04:51 PM Electronically Signed By:Kayleigh Pollock RN Intervention Information
== END 2017-11-30 16:03 | disposition home or self-care (01) | DRG 221 ==
LOC: F2W 12:11 → F2N 17:53 → F2W 11-27 16:26
PROVIDERS: ADMIT Thoracic Surgery (Cardiothoracic Vascular Surgery); ATTEND Thoracic Surgery (Cardiothoracic Vascular Surgery)
PROC: 5A1221Z Performance of Cardiac Output, Continuous (ICD-10-PCS; principal; 2017-11-26 13:30)
PROC: 02L70CK Occlusion of Left Atrial Appendage with Extraluminal Device, Open Approach (ICD-10-PCS; principal; 2017-11-26 13:30)
PROC: 02RX08Z Replacement of Thoracic Aorta, Ascending/Arch with Zooplastic Tissue, Open Approach (ICD-10-PCS; principal; 2017-11-26 13:30)
PROC: B245ZZ4 Ultrasonography of Left Heart, Transesophageal (ICD-10-PCS; principal; 2017-11-26 13:30)
DX: I35.1 Nonrheumatic aortic (valve) insufficiency (principal); I71.2 Thoracic aortic aneurysm, without rupture; R07.89 Other chest pain; J45.909 Unspecified asthma, uncomplicated; K90.0 Celiac disease; Z88.2 Allergy status to sulfonamides; K80.20 Calculus of gallbladder without cholecystitis without obstruction
CPT/HCPCS: 82947-QW; 97110-GP; 97116-GP; 97161-GP; 97165-GO; 97530-GO; 97530-GP; 97535-GO; C1768; J0153; J0282; J0690; J1170; J1265; J1644; J1815; J1885; J2001; J2150; J2250; J2260; J2270; J2370; J2405; J2440; J2704; J2720; J2930; J3010; J3475; J3480; J7060; P9041; Q9967

== ENCOUNTER → 2017-12-11 | Outpatient (CLI) | payer BC | LOC: FIMAGING 11:10 | PROVIDERS: ATTEND Thoracic Surgery (Cardiothoracic Vascular Surgery) | DX: J98.4 Other disorders of lung (principal); J90 Pleural effusion, not elsewhere classified; Z95.2 Presence of prosthetic heart valve ==

== ENCOUNTER → 2017-12-25 | Outpatient (CLI) | payer BC | LOC: FIMAGING 11:09 | PROVIDERS: ATTEND Thoracic Surgery (Cardiothoracic Vascular Surgery) | DX: Z09 Encounter for follow-up examination after completed treatment for conditions other than malignant neoplasm (principal); I71.9 Aortic aneurysm of unspecified site, without rupture ==

== ENCOUNTER → 2018-06-05 | Outpatient (CLI) | payer OTHER | LOC: FIMAGING 15:19 | PROVIDERS: ATTEND Family Medicine | DX: Z12.31 Encounter for screening mammogram for malignant neoplasm of breast (principal); Z80.3 Family history of malignant neoplasm of breast ==